=== PATIENT | female | born 1975 | race Caucasian/White ===

== ENCOUNTER 2024-08-22 04:12 | Day surgery (SDC) | payer BC ==
[2024-08-21 16:26] VITALS: BMI 25.7
[2024-08-22] MEDS ORDERED: DEXAMETHASONE SOD PHOSPHATE 10 MG/1 ML VIAL ONE (07:25)
[2024-08-22] MEDS ORDERED: LIDOCAINE HCL/PF 1% SDV 5ML VIAL ONE (07:25)
[2024-08-22 14:59] VITALS: RESP 18
[2024-08-22 15:15] VITALS: BP 123/70; PULSE 70; TEMP 97.8
[2024-08-22] MEDS ORDERED: ACETAMINOPHEN 500 MG TABLET (FP) PO PRN (18:54)
== END 2024-08-22 15:00 | disposition home or self-care (01) ==
LOC: JASU-SURG 04:12
PROVIDERS: ATTEND Pain Medicine Pain Medicine
PROC: 3E0R3BZ Introduction of Anesthetic Agent into Spinal Canal, Percutaneous Approach (ICD-10-PCS; 2024-08-22)
PROC: 3E0R33Z Introduction of Anti-inflammatory into Spinal Canal, Percutaneous Approach (ICD-10-PCS; principal; 2024-08-22 13:45)
DX: M54.16 Radiculopathy, lumbar region (principal)
CPT/HCPCS: 76000-TC-FY; J1100

== ENCOUNTER 2024-09-19 04:32 | Day surgery (SDC) | payer BC ==
[2024-09-18 10:59] VITALS: BMI 25.4
[2024-09-19] MEDS ORDERED: ACETAMINOPHEN 500 MG TABLET (FP) PO PRN (09:24)
[2024-09-19 11:40] VITALS: RESP 18
[2024-09-19] MEDS: LIDOCAINE HCL 1% PRESERVATIVE FREE - 30ML VIAL IJ ONE (12:43)
[2024-09-19] MEDS: IOHEXOL 180 MG/1 ML ML IJ ONE ×2 (12:44)
[2024-09-19] MEDS: TRIAMCINOLONE ACET 40MG/1ML VIAL IM ONE ×2 (12:46)
[2024-09-19] MEDS: BUPIVACAINE HCL/PF 0.5% (5 MG/ML) 30 ML VIAL IJ ONE ×3 (12:46)
[2024-09-19 13:16] VITALS: BP 110/71; PULSE 58; TEMP 97.3
== END 2024-09-19 13:15 | disposition home or self-care (01) ==
LOC: JASU-SURG 04:32
PROVIDERS: ATTEND Pain Medicine Pain Medicine
PROC: 3E0U3BZ Introduction of Anesthetic Agent into Joints, Percutaneous Approach (ICD-10-PCS; 2024-09-19)
PROC: 3E0U33Z Introduction of Anti-inflammatory into Joints, Percutaneous Approach (ICD-10-PCS; principal; 2024-09-19 13:00)
DX: M53.3 Sacrococcygeal disorders, not elsewhere classified (principal)
CPT/HCPCS: 76000-TC-FY